=== PATIENT | male | born 1955 | race Caucasian/White ===

== ENCOUNTER → 2017-04-03 | Day surgery (SDC) | payer OTHER ==
[~2017-04-03] VITALS: Ht 170.2 cm; Wt 80.0 kg
[2017-04-03 07:30] LABS: INR 0.99 (0.9-1.2); PROTHROMBIN TIME 12.7 SECONDS (11.7-14.0)
[2017-04-03 07:31] LABS: PTT 29.6 SECONDS (23.2-31.4)
--- NOTE | 2017-04-03 13:32 | NUR ---
GRANT GOLDMAN HAD LEFT PORT PLACEMENT TODAY. THERE WERE MULTIPLE ATTEMPTS TO GET THE RIGHT PLACEMENT. AN X-RAY WAS DONE IN PACU POST-OP . I RECOVERED MR. GOLDMAN. HE KEPT ASKING FOR A DRINK AND I EXPLAINED THAT I COULD NOT GIVE HIM ONE UNTIL I SEE THAT THE CHEST X-RAY REPORT WAS GOOD. 45 MINUTES LATER A REPORT WAS RECEIVED AT OUR COPIER MACHINE. I READ THE IMPRESSION REPORT AND HAD MY FELLOW NURSE CO-WORKER MURIEL MALDONADO TO LOOK OVER THE REPORT TO VERIFY THAT IT WAS OK TO SEND HIM HOME. HE ALSO READ THIS REPORT AND SAID IT LOOKED OK TO HIM. SO I GAVE MR GOLDMAN A SMALL SUNDAR KAITY, THEN HE REQUEST TO GO HOME. I DISCUSSED DISCHARGE INSTRUCTIONS WITH HIM AND HIS , REINFORCED A SMALL AREA ON NECK THAT WAS A ATTEMPT FOR A SITE, THEN HE DRESSED AND AMULATED TO CAR PER STAND BY ASSIST. HE WAS IN A GOOD MOOD, VITAL SIGNS STABLE. JOKING AROUNFD WITH ME AND HIS . NOT 5 MINUTES AFTER HE LEFT THE HOSPITAL, MURIEL CALLED HIM BACK AND EXPLAINE DTO ME THAT WE BOTH HAD LOOKED AT AN EARLIER RPORT AND THAT ACCORDING TO THE RADIOLOGIST THE PORT PLACEMENT WAS QUESTIONABLE. THE PATIENT CAME BACK, HE WAS TAKEN DIRECTLY TO [facility] FOR A FOLLOW UP, THEN WAITED IN THE OPS ROOM UNTIL FINAL REPORT WAS FINISHED. DR. TAVERAS WAS NOTIFIED OF THE FINAL REPORT THAT WAS SHOWING AN IJ PLACEMENT WITH A SMALL TURN OF CATHETER. HE EXPLAINED THAT , THIS IS WHERE HE PLANNED FOR IT TO BE AND IF SINCE THERE WAS NO PNEUMOTHROAX HE COULD GO HOME. WE EXPLAINED EVERYTHING TO PATIENT AND HIS , HE LAUGHED AND SAID, "WELL AT LEAST I KNOW IT IS OK, AND I DON'T HAVE TO GET STUCK FOR AN IV AGAIN, 'LAUGHING"."MYSELF AND JONES NOLBE WALKED TO THE CAR, AND I APOLOGIZED FOR EVERYTHING. HE WAS "GRATEFUL' THAT WE WERE "LOOKING OUT FOR HIM".
== END | disposition home or self-care (01) ==
LOC: FAS 07:47
PROVIDERS: Surgery
DX: C34.90 Malignant neoplasm of unspecified part of unspecified bronchus or lung (principal); Z88.2 Allergy status to sulfonamides; Z79.899 Other long term (current) drug therapy; M19.90 Unspecified osteoarthritis, unspecified site; I10 Essential (primary) hypertension; J44.9 Chronic obstructive pulmonary disease, unspecified; Z79.01 Long term (current) use of anticoagulants; Z87.891 Personal history of nicotine dependence
CPT/HCPCS: 36415; 71010; 71020; 76000; 85610; 85730; C1788; J0690; J1644; J2405; J2704; J3010